=== PATIENT | male | born 1995 | race Hispanic/Latino ===

== ENCOUNTER 2018-02-10 04:53 | Emergency (ER) | payer OTHER ==
[2018-02-10 05:06] VITALS: RESP 18
--- NOTE | 2018-02-10 05:27 | ED PDOC ---
HPI: General Adult Time Seen by Provider: 02/10/18 05:02 Chief Complaint (Nursing): Medical Clearance Chief Complaint (Provider): unable to sleep History Per: Patient History/Exam Limitations: no limitations Onset/Duration Of Symptoms: Hrs (7) Current Symptoms Are (Timing): Still Present Additional Complaint(s): 22 y/o male presents with complaints of unable to sleep x 7 hours. Patient states he went in to bed at 22:00 last night and has not been able to fall asleep; states when he does fall asleep he immediately wakes up gasping for air , in a panic. Denies fever, headache, dizziness, nausea/vomiting, cough/ congestion, chest pain, shortness of breath, palpitations. 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 States for the last week he has not gotten his usual amount of sleep. Denies suicidal/homicidal ideations, hallucinations. Past Medical History Reviewed: Historical Data, Nursing Documentation, Vital Signs Vital Signs: Last Vital Signs Temp 97.3 F L 02/10/18 05:02 Pulse 85 02/10/18 05:02 Resp 18 02/10/18 05:02 BP 148/98 H 02/10/18 05:02 Pulse Ox 100 02/10/18 05:35 - Medical History PMH: No Chronic Diseases - Surgical History Surgical History: No Surg Hx - Family History Family History: States: No Known Family Hx - Living Arrangements Living Arrangements: Alone - Social History Current smoker - smoking cessation education provided: No Alcohol: Occasional Drugs: Denies - Allergies Allergies/Adverse Reactions: Allergies Allergy/AdvReac Type Severity Reaction Status Date / Time No Known Allergies Allergy Verified 02/10/18 05:06 Review of Systems ROS Statement: Except As Marked, All Systems Reviewed And Found Negative Physical Exam - Reviewed Nursing Documentation Reviewed: Yes Vital Signs Reviewed: Yes - Physical Exam Appears: Positive for: Well, Non-toxic, No Acute Distress Head Exam: Positive for: ATRAUMATIC, NORMAL INSPECTION, NORMOCEPHALIC Skin: Positive for: Normal Color Eye Exam: Positive for: Normal appearance ENT: Positive for: Normal ENT Inspection Cardiovascular/Chest: Positive for: Regular Rate, Rhythm Respiratory: Positive for: Normal Breath Sounds Gastrointestinal/Abdominal: Positive for: Normal Exam Back: Positive for: Normal Inspection Extremity: Positive for: Normal ROM Neurologic/Psych: Positive for: Alert, Oriented - ECG O2 Sat by Pulse Oximetry: 100 - Progress ED Course And Treament: accucheck Patient educated on findings, discharged with instructions to follow up PMD 2-3 days. Return precautions given. Disposition - Clinical Impression Clinical Impression: Unable to sleep - Patient ED Disposition Is Patient to be Admitted: No Counseled Patient/Family Regarding: Diagnosis, Need For Followup - Disposition Disposition: Routine/Home Disposition Time: 05:47 Condition: GOOD Instructions: Insomnia (DC)
[2018-02-10 05:46] VITALS: BP 139/71; PULSE 100; TEMP 98.5
[2018-02-10 05:47] VITALS: O2SAT 100
== END 2018-02-10 05:50 | disposition home or self-care (01) ==
LOC: H.ER 04:53
DX: G47.00 Insomnia, unspecified (principal)